=== PATIENT | female | born 1970 | race Two or more races ===

== ENCOUNTER 2017-05-24 11:37 | Emergency (ER) | payer OTHER ==
[2017-05-24 11:49] VITALS: RESP 18; O2SAT 96
[2017-05-24 13:07] VITALS: BP 144/93; PULSE 80; TEMP 98.2
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
== END 2017-05-24 13:00 | disposition home or self-care (01) ==
LOC: CED 11:37
DX: S63.501A Unspecified sprain of right wrist, initial encounter (principal); S16.1XXA Strain of muscle, fascia and tendon at neck level, initial encounter; V03.99XA Pedestrian with other conveyance injured in collision with car, pick-up truck or van, unspecified whether traffic or nontraffic accident, initial encounter; Y92.481 Parking lot as the place of occurrence of the external cause; Y99.8 Other external cause status; Y93.01 Activity, walking, marching and hiking
CPT/HCPCS: 72050-PO; 73110-PO; L3908

== ENCOUNTER → 2018-12-17 | Outpatient (CLI) | payer MEDICAID ==
[~2018-12-17] MED LIST: GADOBUTROL 10 ML VIAL IVP ONE
== END ==
LOC: FIMAGING 15:00
PROVIDERS: ATTEND Family Medicine
DX: R90.89 Other abnormal findings on diagnostic imaging of central nervous system (principal); E22.1 Hyperprolactinemia; N92.1 Excessive and frequent menstruation with irregular cycle
CPT/HCPCS: A9585